=== PATIENT | male | born 1985 | race African-American/Black ===

== ENCOUNTER 2019-01-18 22:27 | Emergency (ER) | payer SELFPAY ==
[~2019-01-18] VITALS: Ht 185.4 cm; Wt 88.5 kg
[2019-01-18 22:42] VITALS: BP 143/92
--- NOTE | 2019-01-18 22:44 | NUR ---
ER Nurse Note: Pt walked in c/o rodolfo palpable bumps around upper inner lip. Pt sated he has been having sexual encounters with multiple partners last week and noticed the "sores" 01/18. Pt stated he no pain around the lip, no drainage; has not noticed penial discharge, no pain while urinating. ERMD at pt side; will conitnue to [facility].
[2019-01-18] MEDS ORDERED: Azithromycin 250mg tab ORAL ONE (23:00)
[2019-01-18] MEDS ORDERED: Lidocaine 1% MPF 10mg/ml 5ml INJ ONE (23:00)
--- NOTE | 2019-01-18 23:11 | Emergency Room Report ---
History of Present Illness General Chief Complaint: General Complaint Source: Patient Present Illness HPI Is a 33-year-old male with no past medical history who presents with chief complaint of concern for STD. He said he has a bump the base of his penis is been there for the last couple days. Not painful. It is scabbed over already. He also has a sore on the inner lip on the right side. No pain. No nausea no vomiting. No discharge. He does have a history of STD. He said he just got out of residential. He was treated for 12 years. He is just been out for 8 days and has nonstop external course with 4 different women. He was concerned about possible STD. Allergies: Coded Allergies: No Known Allergies (Unverified , 01/18/19) Patient History Past Medical History: see triage record, old chart reviewed Past Surgical History: none Pertinent Family History: none Social History: Denies: smoking Immunizations: other Reviewed Nursing Documentation: PMH: Agreed; PSxH: Agreed Nursing Documentation-PM Past Medical History: No Stated History Review of Systems Eye: Denies: eye pain, blurred vision ENT: Denies: ear pain, nose congestion, throat swelling Respiratory: Denies: cough, shortness of breath Cardiovascular: Denies: chest pain, palpitations Gastrointestinal: Denies: abdominal pain, diarrhea, nausea, vomiting Musculoskeletal: Denies: back pain, joint pain Skin: Denies: rash Neurological: Denies: headache, numbness Endocrine: Denies: increased thirst, increased urine Hematologic/Lymphatic: Denies: easy bruising All Other Systems: negative except mentioned in HPI Physical Exam Vital Signs Date Time Temp Pulse Resp B/P (MAP) Pulse Ox O2 Delivery O2 Flow Rate FiO2 01/18/19 22:35 98.2 106 19 143/92 (109) 97 Room Air Vitals normal Sp02 EP Interpretation: reviewed, normal General Appearance: well appearing, no apparent distress, alert Head: normocephalic, atraumatic Eyes: bilateral eye PERRL, bilateral eye EOMI ENT: hearing grossly normal, normal pharynx, other - Right upper lip on the inner aspect shows small aphthous ulcer. No drainage. Neck: full range of motion, supple, no meningismus Respiratory: chest non-tender, lungs clear, normal breath sounds Cardiovascular #1: regular rate, rhythm, no murmur Gastrointestinal: normal bowel sounds, non tender, no mass, no organomegaly, no bruit, non-distended Genitourinary: other - Penis show no evidence of any discharge. No particular tenderness. The base of the penis there is 2 small scab from ulceration. Musculoskeletal: back normal, gait/station normal, normal range of motion Psychiatric: mood/affect normal Medical Decision Making Diagnostic Impression: Primary Impression: Possible exposure to STD ER Course Patient presents concern for possible STD. He has high risk since he has multiple partners and his last week. Will cover for gonorrhea and chlamydia. Lesion on the penis most likely from abrasion from frequent sexual intercourse. It is not painful and does not look like herpes. Timeframe is unlikely to be syphilis or HPV. Recommend patient get outpatient testing for HIV, hepatitis, syphilis and other STD. Last Vital Signs Date Time Temp Pulse Resp B/P (MAP) Pulse Ox O2 Delivery O2 Flow Rate FiO2 01/18/19 22:42 106 19 Room Air 01/18/19 22:42 98.2 143/92 97 Status: improved Disposition: HOME, SELF-CARE Condition: Stable Referrals: NOT CHOSEN IPA/,REFERRING (PCP) Additional Instructions: Follow-up with your doctor in 7 days. Practice safe sex. Recommend outpatient testing for HIV, hepatitis, syphilis and other STDs. This can be done anonymously. Return if worse. Deepak Novoa MD Jan 18, 2019 23:11
[2019-01-18 23:15] VITALS: BP 143/92
--- NOTE | 2019-01-18 23:15 | NUR ---
ER Nurse Note: Patient is cleared to be discharged per ERMD, pt is aox4, on room air, with stable vital signs. Pt was given dc instructions. Pt was able to verbalize understanding. Pt id band removed. Pt is able to ambulate with steady gait. Pt took all belongings.
== END 2019-01-18 23:15 | disposition home or self-care (01) ==
LOC: EMR 23:04
DX: N48.9 Disorder of penis, unspecified (principal); Z20.2 Contact with and (suspected) exposure to infections with a predominantly sexual mode of transmission; K12.0 Recurrent oral aphthae
CPT/HCPCS: 96372; 96374; 99284; J0696